=== PATIENT | male | born 1965 | race Caucasian/White ===

== ENCOUNTER 2018-05-10 22:44 | Inpatient (IN) | payer SELFPAY ==
[~2018-05-10] VITALS: Ht 175.3 cm; Wt 89.4 kg
[~2018-05-10 22:44] MED LIST: MECL12.584 PO
[2018-05-10] MEDS ORDERED: SODIUM CHLORIDE 0.9% 1,000 ML IV ONE (23:17)
[2018-05-11 00:15] LABS: BASOPHILS % 1.1 % (0.0-2.0); EOSINOPHILS % 1.3 % (0.0-5.0); HEMATOCRIT. 42.8 % (42.0-52.0); HEMOGLOBIN. 14.8 g/dL (14.0-18.0); LYMPHOCYTES % 32.7 % (20.0-50.0); MEAN CORPUSCULAR HEMOGLOBIN 30.9 pg (28.0-32.0); MEAN CORPUSCULAR VOLUME 89.3 fL (80.0-94.0); MEAN PLATELET VOLUME 8.4 fl (7.4-10.4); MONOCYTES % 7.6 % (2.0-8.0); NEUTROPHILS % 57.3 % (40.0-76.0); PLATELET 257 x1000/uL (130-400)
[2018-05-11 00:20] LABS: CHLORIDE 99 mEq/L (98-107)
[2018-05-11 00:27] LABS: BETA HYDROXYBUTYRATE 0.1 mMol/L (0.0-0.3)
[2018-05-11] MEDS ORDERED: SODIUM CHLORIDE 0.9% 1,000 ML IV SCH (02:06)
[2018-05-11 02:07] LABS: CLARITY URINE CLEAR (CLEAR); COLOR URINE YELLOW (YELLOW); KETONES URINE TRACE (NEGATIVE); LEUKOCYTE ESTERASE URINE NEGATIVE (NEGATIVE); NITRITE URINE NEGATIVE (NEGATIVE); OCCULT BLOOD URINE NEGATIVE (NEGATIVE); PH URINE 6.5 (4.5-8.0); PROTEIN URINE NEGATIVE (NEGATIVE); SPECIFIC GRAVITY URINE 1.028 (1.005-1.030); UROBILINOGEN URINE 0.2 E.U./dL (0.2-1.0)
[2018-05-11] MEDS ORDERED: HYDROCODONE/ACETAMINOPHEN 5/325MG TABLET PO PRN (05:15)
[2018-05-11] MEDS ORDERED: NA PHOS,M-B/NA PHOS,DI-BA ENEMA 118ML PR PRN (05:15)
[2018-05-11] MEDS ORDERED: DOCUSATE SODIUM 100MG CAPSULE PO PRN (05:15)
[2018-05-11] MEDS ORDERED: IPRATROPIUM/ALBUTEROL 0.5-3(2.5)MG/3ML NEB INH PRN (05:15)
[2018-05-11] MEDS ORDERED: CLONIDINE 0.1MG TABLET PO PRN (05:15)
[2018-05-11] MEDS ORDERED: MAGNESIUM/ALUMINUM HYDROXIDE/SIMETHICONE 30ML UDC PO PRN (05:15)
[2018-05-11] MEDS ORDERED: ONDANSETRON HCL 4MG/2ML INJ IV PRN (05:15)
[2018-05-11] MEDS ORDERED: LORAZEPAM 2MG/ML CPJ IV PRN (05:15)
[2018-05-11] MEDS ORDERED: GUAIFENESIN 200MG/10ML SUGAR FREE UDC PO PRN (05:15)
[2018-05-11] MEDS ORDERED: DIPHENHYDRAMINE 50MG/ML VIAL IV PRN (05:15)
[2018-05-11] MEDS ORDERED: ACETAMINOPHEN 325MG TABLET PO PRN (05:15)
[2018-05-11] MEDS ORDERED: MORPHINE SULFATE 4 MG/ML CPJ (NOT FOR IM USE) IV PRN (05:15)
[2018-05-11 06:28] LABS: CREATINE KINASE 56 IU/L (39-308)
[2018-05-11 06:29] LABS: CREATINE KINASE MB FRACTION 1.1 ng/mL (0.5-3.6)
[2018-05-11 10:40] VITALS: BP 153/84
[2018-05-11] MEDS ORDERED: DEXTROSE 50% WATER 50ML SYRINGE IV PRN (14:15)
[2018-05-11] MEDS: ENOXAPARIN 40MG/0.4ML SYR SUBCUT SCH (14:48)
[2018-05-11] MEDS: ASPIRIN 81MG EC TABLET PO SCH (14:48)
[2018-05-11] MEDS: INSULIN LISPRO 100 UNITS/ML SUBCUT SCH ×3 (14:56→21:58)
[2018-05-11 17:02] LABS: CREATINE KINASE 47 IU/L (39-308); CREATINE KINASE MB FRACTION < 1.0 ng/mL (0.5-3.6)
[2018-05-11] MEDS: BLOOD SUGAR DIAGNOSTIC STRIP TEST SCH ×2 (18:01→21:51)
[2018-05-11] MEDS: SODIUM CHLORIDE 0.9% 1,000 ML IV SCH (18:54)
[2018-05-11 20:00] VITALS: BP 121/75
[2018-05-11 23:55] VITALS: BP 114/72
[2018-05-12] VITALS: BP 132/77
[2018-05-12] MEDS: SODIUM CHLORIDE 0.9% 1,000 ML IV SCH (03:09)
[2018-05-12 04:00] VITALS: BP_SYST 127; BP_SYST 133; BP_DIAS 69; BP_DIAS 77
[2018-05-12] MEDS: BLOOD SUGAR DIAGNOSTIC STRIP TEST SCH ×2 (07:20→12:08)
[2018-05-12 08:00] VITALS: BP 122/74
[2018-05-12 08:03] LABS: BASOPHILS % 0.9 % (0.0-2.0); EOSINOPHILS % 1.5 % (0.0-5.0); HEMOGLOBIN. 14.7 g/dL (14.0-18.0); LYMPHOCYTES % 38.5 % (20.0-50.0); MEAN CORPUSCULAR HEMOGLOBIN 31.3 pg (28.0-32.0); MEAN CORPUSCULAR VOLUME 89.1 fL (80.0-94.0); MEAN PLATELET VOLUME 8.7 fl (7.4-10.4); MONOCYTES % 7.4 % (2.0-8.0); NEUTROPHILS % 51.7 % (40.0-76.0); PLATELET 250 x1000/uL (130-400); RED BLOOD CELL COUNT 4.71 mill/uL (4.7-6.1); RED CELL DISTRIBUTION WIDTH 13.4 % (11.6-14.6)
[2018-05-12 08:14] LABS: CHLORIDE 104 mEq/L (98-107)
[2018-05-12] MEDS: ASPIRIN 81MG EC TABLET PO SCH (09:36)
[2018-05-12] MEDS: INSULIN LISPRO 100 UNITS/ML SUBCUT SCH ×2 (09:38→12:25)
[2018-05-12] MEDS: ENOXAPARIN 40MG/0.4ML SYR SUBCUT SCH (11:00)
[2018-05-12 12:00] VITALS: BP 139/94
== END 2018-05-12 14:00 | disposition home or self-care (01) | DRG 82 ==
LOC: ER 23:45 → 6WST 05-11 02:07 → EDBEDREQTM 05-11 02:09 → EDBEDREQ 05-11 02:09 → ENRESERV 05-11 10:10
PROVIDERS: ADMIT Internal Medicine; ATTEND Internal Medicine
DX: H53.40 Unspecified visual field defects (principal); E11.65 Type 2 diabetes mellitus with hyperglycemia; F17.210 Nicotine dependence, cigarettes, uncomplicated; Z79.899 Other long term (current) drug therapy
CPT/HCPCS: 36415; 71045; 82010; 82550; 82553; 82962; 83036; 84439; 84443; 84484; 93005; 96360; 96361; 99285; J1650; J1815; J7030

== ENCOUNTER 2022-08-23 18:32 | Inpatient (IN) | payer MEDICAID ==
[~2022-08-23] VITALS: Ht 175.3 cm; Wt 89.4 kg
[~2022-08-23 18:32] MED LIST changes: +MECL-217 PO; -MECL12.584 PO
[2022-08-23] MEDS ORDERED: DILTIAZEM HCL 5MG/ML 5ML VIAL IV ONE (19:15)
[2022-08-23 20:20] LABS: BASOPHILS % 0.8 % (0.0-2.0); EOSINOPHILS % 1.5 % (0.0-5.0); HEMATOCRIT. 40.2 % (42.0-52.0); HEMOGLOBIN. 13.3 g/dL (14.0-18.0); LYMPHOCYTES % 32.4 % (20.0-50.0); MEAN CORPUSCULAR HEMOGLOBIN 30.6 pg (28.0-32.0); MEAN CORPUSCULAR VOLUME 92.4 fL (80.0-94.0); MEAN PLATELET VOLUME 8.4 fl (7.4-10.4); MONOCYTES % 7.5 % (2.0-8.0); NEUTROPHILS % 57.8 % (40.0-76.0); PLATELET 233 x1000/uL (130-400); RED BLOOD CELL COUNT 4.35 mill/uL (4.7-6.1); RED CELL DISTRIBUTION WIDTH 13.5 % (11.6-14.6)
[2022-08-23 20:33] LABS: CHLORIDE 105 mEq/L (98-107)
[2022-08-23 20:42] LABS: ETHANOL BLOOD < 10 mg/dL
[2022-08-23] MEDS ORDERED: ENOXAPARIN 100MG/ML SYR SUBCUT ONE (21:30)
[2022-08-23] MEDS ORDERED: ASPIRIN 325MG EC TABLET PO ONE (21:30)
[2022-08-23] MEDS ORDERED: METHYLPREDNISOLONE SOD SUCC 125 MG/2 ML VIAL IV ONE (21:45)
[2022-08-23] MEDS ORDERED: ONDANSETRON HCL 4MG/2ML INJ IV PRN (22:30)
[2022-08-23] MEDS ORDERED: CLONIDINE 0.1MG TABLET PO PRN (22:30)
[2022-08-23] MEDS ORDERED: DOCUSATE SODIUM 100MG CAPSULE PO PRN (22:30)
[2022-08-23] MEDS ORDERED: NA PHOS,M-B/NA PHOS,DI-BA ENEMA 118ML PR PRN (22:30)
[2022-08-23] MEDS ORDERED: NITROGLYCERIN 0.4MG TABLET SL SL PRN (22:30)
[2022-08-23] MEDS ORDERED: ZOLPIDEM TARTRATE 5MG TABLET PO PRN (22:30)
[2022-08-23] MEDS ORDERED: MAGNESIUM/ALUMINUM HYDROXIDE/SIMETHICONE 30ML UDC PO PRN (22:30)
[2022-08-23] MEDS ORDERED: KETOROLAC 15MG/ML VIAL IV PRN (22:30)
[2022-08-23] MEDS ORDERED: ACETAMINOPHEN 325MG TABLET PO PRN (22:30)
[2022-08-23] MEDS ORDERED: IPRATROPIUM/ALBUTEROL 0.5-3(2.5)MG/3ML NEB NEB PRN (22:30)
[2022-08-23] MEDS ORDERED: IPRATROPIUM BROMIDE (0.02%) 0.5MG/2.5ML NEB HHN PRN (22:45)
[2022-08-23] MEDS ORDERED: ALBUTEROL (0.083%) 2.5MG/3ML NEB HHN PRN (22:45)
[2022-08-23] MEDS ORDERED: IOHEXOL-350 100 ML BOTTLE ONE (22:45)
[2022-08-23 23:10] LABS: PROTHROMBIN TIME 10.8 sec (9.6-11.0)
[2022-08-23 23:19] LABS: T4 FREE 1.1 ng/dL (0.76-1.46)
[2022-08-23 23:41] LABS: FOLIC ACID (FOLATE) SERUM 18.1 ng/mL (>5.38)
[2022-08-24] MEDS ORDERED: DEXTROSE 50% WATER 50ML SYRINGE IV PRN (02:45)
[2022-08-24 06:21] LABS: CHLORIDE 107 mEq/L (98-107)
[2022-08-24 06:27] LABS: PHOSPHORUS 3.1 mg/dL (2.5-4.9)
[2022-08-24 06:30] LABS: BASOPHILS % 0.3 % (0.0-2.0); HEMOGLOBIN. 12.7 g/dL (14.0-18.0); LYMPHOCYTES % 13.3 % (20.0-50.0); MEAN CORPUSCULAR HEMOGLOBIN 31.3 pg (28.0-32.0); MEAN CORPUSCULAR VOLUME 91.1 fL (80.0-94.0); MEAN PLATELET VOLUME 8.7 fl (7.4-10.4); MONOCYTES % 1.2 % (2.0-8.0); NEUTROPHILS % 85.2 % (40.0-76.0); PLATELET 217 x1000/uL (130-400); RED BLOOD CELL COUNT 4.07 mill/uL (4.7-6.1); RED CELL DISTRIBUTION WIDTH 13.6 % (11.6-14.6)
[2022-08-24] MEDS: INSULIN LISPRO 100 UNITS/ML SUBCUT SCH ×4 (09:19→22:30)
[2022-08-24] MEDS: BLOOD SUGAR DIAGNOSTIC STRIP TEST SCH ×4 (09:29→21:00)
[2022-08-24] MEDS: ASPIRIN 325MG EC TABLET PO SCH (09:54)
[2022-08-24] MEDS: METOPROLOL TARTRATE 25MG TABLET PO SCH ×2 (09:54→21:07)
[2022-08-24] MEDS: FAMOTIDINE 20MG TABLET PO SCH ×2 (09:54→21:07)
[2022-08-24] MEDS: ENOXAPARIN 100MG/ML SYR SUBCUT SCH ×2 (09:55→21:07)
[2022-08-24 10:24] VITALS: BP 127/85
[2022-08-24] MEDS: CLOPIDOGREL 75MG TABLET PO SCH (11:58)
[2022-08-24 12:00] VITALS: BP 107/72
[2022-08-24] MEDS ORDERED: MAGNESIUM 2 G PREMIX 50 ML IV NR (12:00)
[2022-08-24 14:00] VITALS: BP 105/73
[2022-08-24 15:50] LABS: CREATINE KINASE MB FRACTION 31.6 ng/mL (0.5-3.6)
[2022-08-24 16:00] VITALS: BP 107/84
[2022-08-24 20:00] VITALS: BP 141/86
[2022-08-24 22:17] VITALS: BP 176/109
[2022-08-24] MEDS: INSULIN GLARGINE 100 UNITS/ML SUBCUT SCH (22:31)
[2022-08-25] VITALS (12 sets, daily range): BP systolic 96–136; BP diastolic 59–97
[2022-08-25] MEDS: INSULIN LISPRO 100 UNITS/ML SUBCUT SCH ×4 (07:54→20:46)
[2022-08-25] MEDS: BLOOD SUGAR DIAGNOSTIC STRIP TEST SCH ×4 (07:54→20:39)
[2022-08-25] MEDS: METOPROLOL TARTRATE 25MG TABLET PO SCH ×2 (09:40→20:47)
[2022-08-25] MEDS: FAMOTIDINE 20MG TABLET PO SCH ×2 (09:40→20:46)
[2022-08-25] MEDS: CLOPIDOGREL 75MG TABLET PO SCH (09:40)
[2022-08-25] MEDS: ASPIRIN 325MG EC TABLET PO SCH (09:40)
[2022-08-25] MEDS: ENOXAPARIN 100MG/ML SYR SUBCUT SCH ×2 (09:41→20:46)
[2022-08-25] MEDS: INSULIN GLARGINE 100 UNITS/ML SUBCUT SCH (20:45)
[2022-08-26] VITALS (13 sets, daily range): BP systolic 93–136; BP diastolic 53–87
[2022-08-26] MEDS: BLOOD SUGAR DIAGNOSTIC STRIP TEST SCH ×4 (07:30→20:50)
[2022-08-26] MEDS: CLOPIDOGREL 75MG TABLET PO SCH (10:26)
[2022-08-26] MEDS: FAMOTIDINE 20MG TABLET PO SCH ×2 (10:26→20:50)
[2022-08-26] MEDS: ASPIRIN 325MG EC TABLET PO SCH (10:26)
[2022-08-26] MEDS: ENOXAPARIN 100MG/ML SYR SUBCUT SCH ×2 (10:27→20:57)
[2022-08-26] MEDS: METOPROLOL TARTRATE 25MG TABLET PO SCH ×2 (10:27→20:59)
[2022-08-26] MEDS: INSULIN LISPRO 100 UNITS/ML SUBCUT SCH ×3 (13:00→20:56)
[2022-08-26] MEDS ORDERED: ACETAMINOPHEN 325MG TABLET PO PRN (19:30)
[2022-08-26] MEDS ORDERED: ALPRAZOLAM 0.25 MG TABLET PO PRN (19:30)
[2022-08-26] MEDS: GUAIFENESIN 200MG/10ML SUGAR FREE UDC PO PRN (20:50)
[2022-08-26] MEDS: INSULIN GLARGINE 100 UNITS/ML SUBCUT SCH (20:57)
[2022-08-27] VITALS (12 sets, daily range): BP systolic 94–158; BP diastolic 45–72
[2022-08-27] MEDS: INSULIN LISPRO 100 UNITS/ML SUBCUT SCH ×4 (08:00→21:23)
[2022-08-27] MEDS: FAMOTIDINE 20MG TABLET PO SCH ×2 (08:32→20:26)
[2022-08-27] MEDS: LOSARTAN POTASSIUM 50 MG TABLET PO SCH (08:32)
[2022-08-27] MEDS: ENOXAPARIN 100MG/ML SYR SUBCUT SCH ×2 (08:33→20:27)
[2022-08-27] MEDS: METOPROLOL TARTRATE 50MG TABLET PO SCH ×2 (08:33→20:35)
[2022-08-27] MEDS: BLOOD SUGAR DIAGNOSTIC STRIP TEST SCH ×4 (08:42→20:27)
[2022-08-27] MEDS: ASPIRIN 325MG EC TABLET PO SCH (11:58)
[2022-08-27] MEDS: FUROSEMIDE 40MG/4ML VIAL IVP SCH (12:33)
[2022-08-27] MEDS: ATORVASTATIN CALCIUM 40MG TABLET PO SCH (20:26)
[2022-08-27] MEDS: INSULIN GLARGINE 100 UNITS/ML SUBCUT SCH (21:23)
[2022-08-28] VITALS (10 sets, daily range): BP systolic 90–121; BP diastolic 43–74
[2022-08-28] MEDS: INSULIN LISPRO 100 UNITS/ML SUBCUT SCH ×4 (08:00→22:35)
[2022-08-28] MEDS: ENOXAPARIN 100MG/ML SYR SUBCUT SCH (08:20)
[2022-08-28] MEDS: METOPROLOL TARTRATE 50MG TABLET PO SCH ×2 (08:21→22:30)
[2022-08-28] MEDS: FUROSEMIDE 40MG/4ML VIAL IVP SCH (08:21)
[2022-08-28] MEDS: FAMOTIDINE 20MG TABLET PO SCH ×2 (08:21→22:30)
[2022-08-28] MEDS: BLOOD SUGAR DIAGNOSTIC STRIP TEST SCH ×4 (08:22→21:00)
[2022-08-28] MEDS: ASPIRIN 81MG EC TABLET PO SCH (08:26)
[2022-08-28 10:43] LABS: CLARITY URINE CLEAR (CLEAR); COLOR URINE YELLOW (YELLOW); KETONES URINE NEGATIVE (NEGATIVE); LEUKOCYTE ESTERASE URINE NEGATIVE (NEGATIVE); NITRITE URINE NEGATIVE (NEGATIVE); OCCULT BLOOD URINE NEGATIVE (NEGATIVE); PROTEIN URINE NEGATIVE (NEGATIVE); SPECIFIC GRAVITY URINE 1.013 (1.005-1.030)
[2022-08-28] MEDS: LOSARTAN POTASSIUM 50 MG TABLET PO SCH (13:04)
[2022-08-28] MEDS: ATORVASTATIN CALCIUM 40MG TABLET PO SCH (22:29)
[2022-08-28] MEDS: INSULIN GLARGINE 100 UNITS/ML SUBCUT SCH (22:35)
[2022-08-29] VITALS (12 sets, daily range): BP systolic 85–162; BP diastolic 36–68
[2022-08-29] MEDS ORDERED: DOPAMINE 400 MG PREMIX 250 ML IV PRN (05:45)
[2022-08-29] MEDS: BLOOD SUGAR DIAGNOSTIC STRIP TEST SCH ×4 (07:30→21:00)
[2022-08-29] MEDS: FUROSEMIDE 40MG/4ML VIAL IVP SCH (08:57)
[2022-08-29] MEDS: ASPIRIN 81MG EC TABLET PO SCH (08:57)
[2022-08-29] MEDS: FAMOTIDINE 20MG TABLET PO SCH ×2 (08:57→21:16)
[2022-08-29] MEDS: LOSARTAN POTASSIUM 50 MG TABLET PO SCH (09:00)
[2022-08-29] MEDS: METOPROLOL TARTRATE 50MG TABLET PO SCH ×2 (09:00→21:30)
[2022-08-29] MEDS: INSULIN LISPRO 100 UNITS/ML SUBCUT SCH ×4 (09:07→21:24)
[2022-08-29] MEDS ORDERED: CHLORHEXIDINE GLUCONATE 4% EXTERNAL USE TOP SCH (21:00)
[2022-08-29] MEDS ORDERED: DOCUSATE SODIUM 100MG CAPSULE PO SCH (21:00)
[2022-08-29] MEDS ORDERED: BISACODYL 10MG SUPP PR PRN (21:00)
[2022-08-29] MEDS ORDERED: ASCORBIC ACID 500 MG TABLET PO SCH (21:00)
[2022-08-29] MEDS: ATORVASTATIN CALCIUM 40MG TABLET PO SCH (21:17)
[2022-08-29] MEDS: ALLOPURINOL 300 MG TABLET PO SCH (21:17)
[2022-08-29] MEDS: INSULIN GLARGINE 100 UNITS/ML SUBCUT SCH (21:52)
[2022-08-30] VITALS (54 sets, daily range): BP systolic 0–174; BP diastolic 0–126
[2022-08-30] MEDS ORDERED: NOREPINEPHRINE 8 MG in DEXT 5% WATER 242 ML IV PRN (04:00)
[2022-08-30] MEDS ORDERED: PAPAVERINE HCL 180MG in SODIUM CHLORIDE 0.9% 24ML IV NR (04:00)
[2022-08-30] MEDS ORDERED: EPINEPHRINE 5 MG in DEXT 5% WATER 245 ML IV PRN (04:00)
[2022-08-30] MEDS ORDERED: CEFAZOLIN 2,000 MG in DEXT 5% WATER 100 ML IV NR (04:00)
[2022-08-30] MEDS ORDERED: INSULIN REGULAR 100U/100ML PMX 100 ML IV NR (04:00)
[2022-08-30] MEDS ORDERED: DOBUTAMINE 250MG PREMIX 250 ML IV PRN (04:00)
[2022-08-30] MEDS ORDERED: NICARDIPINE 40MG/200ML PREMIX 200 ML IV PRN (04:00)
[2022-08-30] MEDS ORDERED: DEL NIDO ELECTROLYTE-S(PH 7.4) 1,000 ML IV NR ×2 (04:00)
[2022-08-30] MEDS ORDERED: THROMBIN (BOVINE) 5000 UNITS/VIAL TOP ONE (05:26)
[2022-08-30] MEDS ORDERED: POLYMYXIN B SULFATE 500000 UNITS/VIAL ONE (05:26)
[2022-08-30] MEDS ORDERED: DOPAMINE 400MG/250ML PREMIX 250 ML IV ONE (05:26)
[2022-08-30] MEDS: ALLOPURINOL 300 MG TABLET PO SCH (05:28)
[2022-08-30] MEDS ORDERED: HEPARIN 1000 UNITS/ML 10ML ONE ×2 (05:28→08:59)
[2022-08-30] MEDS ORDERED: NICARDIPINE 40MG/200ML PREMIX 200 ML IV ONE (05:30)
[2022-08-30] MEDS ORDERED: SEVOFLURANE 250 ML LIQUID INH ONE (05:30)
[2022-08-30] MEDS ORDERED: CHLORHEXIDINE GLUCONATE 4% EXTERNAL USE TOP SCH (06:00)
[2022-08-30 06:02] LABS: PARTIAL THROMBOPLASTIN TIME 29.3 sec (23.4-31.0); PROTHROMBIN TIME 10.9 sec (9.6-11.0)
[2022-08-30 06:06] LABS: BASOPHILS % 0.9 % (0.0-2.0); EOSINOPHILS % 2.7 % (0.0-5.0); HEMATOCRIT. 38.6 % (42.0-52.0); HEMOGLOBIN. 13.3 g/dL (14.0-18.0); LYMPHOCYTES % 31.1 % (20.0-50.0); MEAN CORPUSCULAR HEMOGLOBIN 31.6 pg (28.0-32.0); MEAN CORPUSCULAR VOLUME 91.8 fL (80.0-94.0); MEAN PLATELET VOLUME 8.8 fl (7.4-10.4); NEUTROPHILS % 54.3 % (40.0-76.0); PLATELET 250 x1000/uL (130-400); RED BLOOD CELL COUNT 4.21 mill/uL (4.7-6.1); RED CELL DISTRIBUTION WIDTH 13.5 % (11.6-14.6)
[2022-08-30 06:31] LABS: CHLORIDE 104 mEq/L (98-107)
[2022-08-30] MEDS ORDERED: FENTANYL CITRATE/PF 50MCG/ML 2ML VIAL ONE (07:01)
[2022-08-30] MEDS ORDERED: ROCURONIUM BROMIDE 10MG/ML VIAL 5ML IV ONE ×2 (07:03→09:31)
[2022-08-30] MEDS: BLOOD SUGAR DIAGNOSTIC STRIP TEST SCH ×12 (07:30→23:00)
[2022-08-30] MEDS: INSULIN LISPRO 100 UNITS/ML SUBCUT SCH (08:00)
[2022-08-30] MEDS ORDERED: DEXAMETHASONE 4MG/ML 1ML VIAL ONE (08:19)
[2022-08-30] MEDS ORDERED: FUROSEMIDE 20MG/2ML VIAL ONE (08:19)
[2022-08-30] MEDS ORDERED: PROTAMINE SULFATE 10MG/ML VIAL 25ML IV ONE (08:22)
[2022-08-30] MEDS ORDERED: DEXMEDETOMIDINE 400 MCG/100 ML 100 ML IV ONE (08:22)
[2022-08-30] MEDS ORDERED: CALCIUM CHLORIDE 1GM/10ML SYR IV ONE (08:59)
[2022-08-30] MEDS: METOPROLOL TARTRATE 50MG TABLET PO SCH ×2 (09:00→20:54)
[2022-08-30] MEDS: FUROSEMIDE 40MG/4ML VIAL IVP SCH (09:00)
[2022-08-30] MEDS: LOSARTAN POTASSIUM 50 MG TABLET PO SCH (09:00)
[2022-08-30] MEDS: FAMOTIDINE 20MG TABLET PO SCH ×2 (09:00→21:20)
[2022-08-30] MEDS: ASPIRIN 81MG EC TABLET PO SCH (09:00)
[2022-08-30] MEDS ORDERED: DEXTROSE 50% WATER 50ML SYRINGE IV ONE (09:11)
[2022-08-30] MEDS ORDERED: DEXTROSE 50% WATER 50ML SYRINGE IV PRN ×2 (09:45)
[2022-08-30] MEDS ORDERED: BLOOD SUGAR DIAGNOSTIC STRIP TEST SCH (09:45)
[2022-08-30] MEDS ORDERED: KCL 10MEQ/50ML PREMIX 150 ML IV PRN (09:45)
[2022-08-30] MEDS ORDERED: KCL 10MEQ/50ML PREMIX 200 ML IV PRN (09:45)
[2022-08-30] MEDS ORDERED: INSULIN REGULAR 100U/100ML PMX 100 ML IV SCH (09:45)
[2022-08-30] MEDS ORDERED: KCL 10MEQ/50ML PREMIX 100 ML IV PRN (09:45)
[2022-08-30] MEDS ORDERED: SODIUM BICARBONATE 8.4% 1 MEQ/ML 50ML SYR IV ONE (10:36)
[2022-08-30] MEDS ORDERED: ALBUMIN HUMAN 25GM/100ML (25%) IV PRN (10:45)
[2022-08-30] MEDS ORDERED: SODIUM CHLORIDE 0.9% 500 ML IV PRN (10:45)
[2022-08-30] MEDS ORDERED: ONDANSETRON HCL 4MG/2ML INJ IV PRN (10:45)
[2022-08-30] MEDS ORDERED: ALBUMIN HUMAN 12.5G/250ML (5%) IV PRN (10:45)
[2022-08-30] MEDS ORDERED: MAGNESIUM SULFATE 3 GM in DEXT 5% WATER 100 ML IV PRN (10:45)
[2022-08-30] MEDS ORDERED: ACETAMINOPHEN 325MG TABLET PO PRN (10:45)
[2022-08-30] MEDS ORDERED: MAGNESIUM 1 G PREMIX 100 ML IV PRN (10:45)
[2022-08-30] MEDS ORDERED: EPINEPHRINE 5 MG in DEXT 5% WATER 245 ML IV SCH (10:45)
[2022-08-30 11:08] LABS: BG BASE EXCESS -0.4 mmol/L (-2.0-2.0); BG CARBOXYHEMOGLOBIN 0.7 % (0.5-1.5); BG DEOXYHEMOGLOBIN 7.4 % (0.0-5.0); BG FRACTION INSPIRED OXYGEN 100; BG HCO3 ACT 25.8 mmol/L (22.0-26.0); BG METHEMOGLOBIN 0.2 % (0.0-1.5); BG OXYGEN SATURATION 92.5 % (92.0-98.5); BG OXYHEMOGLOBIN 91.7 % (94.0-97.0); BG PCO2 48.5 mmHg (35.0-45.0); BG PH 7.343 (7.350-7.450); BG PO2 70.9 mmHg (75.0-100.0); BG SAMPLE SITE ALINE; BG TOTAL HEMOGLOBIN 12.4 g/dL (12.0-18.0); BG VENT MODE MASK - NRB
[2022-08-30] MEDS: KETOROLAC 30MG/ML VIAL IV PRN ×2 (11:44→17:38)
[2022-08-30] MEDS: DOPAMINE 400MG/250ML PREMIX 250 ML IV SCH ×2 (11:48→21:23)
[2022-08-30 11:49] LABS: BASOPHILS % 0.3 % (0.0-2.0); EOSINOPHILS % 0.7 % (0.0-5.0); HEMATOCRIT. 35.8 % (42.0-52.0); LYMPHOCYTES % 12.6 % (20.0-50.0); MEAN CORPUSCULAR HEMOGLOBIN 30.8 pg (28.0-32.0); MEAN CORPUSCULAR VOLUME 92.1 fL (80.0-94.0); MEAN PLATELET VOLUME 8.3 fl (7.4-10.4); MONOCYTES % 5.4 % (2.0-8.0); PLATELET 230 x1000/uL (130-400); RED BLOOD CELL COUNT 3.89 mill/uL (4.7-6.1); RED CELL DISTRIBUTION WIDTH 13.5 % (11.6-14.6)
[2022-08-30] MEDS: BACITRACIN 15GM TUBE TOP SCH ×2 (12:00→17:00)
[2022-08-30] MEDS ORDERED: CALCIUM CHLORIDE 3,000 MG in DEXT 5% WATER 250 ML IV PRN (12:00)
[2022-08-30] MEDS: DOCUSATE SODIUM 100MG CAPSULE PO SCH ×2 (12:01→17:10)
[2022-08-30] MEDS: DEXT 5%/0.45% NACL 1000ML 1,000 ML IV SCH (12:03)
[2022-08-30] MEDS: CEFAZOLIN 1000MG PREMIX 50 ML IV SCH ×2 (14:26→20:26)
[2022-08-30] MEDS: OXYCODONE HCL/ACETAMINOPHEN 5/325MG TABLET PO PRN ×2 (16:12→20:52)
[2022-08-30] MEDS: ACETAMINOPHEN 325MG TABLET PO PRN (17:10)
[2022-08-30 17:28] LABS: HEMATOCRIT. 29.8 % (42.0-52.0); HEMOGLOBIN. 10.1 g/dL (14.0-18.0); MEAN CORPUSCULAR HEMOGLOBIN 31.2 pg (28.0-32.0); MEAN CORPUSCULAR VOLUME 91.6 fL (80.0-94.0); MEAN PLATELET VOLUME 8.2 fl (7.4-10.4); PLATELET 209 x1000/uL (130-400); RED BLOOD CELL COUNT 3.25 mill/uL (4.7-6.1); RED CELL DISTRIBUTION WIDTH 13.3 % (11.6-14.6)
[2022-08-30 17:59] LABS: CHLORIDE 114 mEq/L (98-107)
[2022-08-30 19:30] LABS: PLATELET ESTIMATE NORMAL
[2022-08-30] MEDS: ATORVASTATIN CALCIUM 40MG TABLET PO SCH (20:53)
[2022-08-30] MEDS: INSULIN GLARGINE 100 UNITS/ML SUBCUT SCH (23:53)
[2022-08-31] VITALS (82 sets, daily range): BP systolic 82–140; BP diastolic 32–94
[2022-08-31] MEDS: BLOOD SUGAR DIAGNOSTIC STRIP TEST SCH ×10 (00:09→21:00)
[2022-08-31 00:52] LABS: HEMATOCRIT. 31.4 % (42.0-52.0); HEMOGLOBIN. 10.6 g/dL (14.0-18.0); MEAN CORPUSCULAR HEMOGLOBIN 31.1 pg (28.0-32.0); MEAN CORPUSCULAR VOLUME 91.6 fL (80.0-94.0); MEAN PLATELET VOLUME 8.5 fl (7.4-10.4); PLATELET 244 x1000/uL (130-400); RED BLOOD CELL COUNT 3.43 mill/uL (4.7-6.1); RED CELL DISTRIBUTION WIDTH 13.5 % (11.6-14.6)
[2022-08-31 00:58] LABS: CHLORIDE 106 mEq/L (98-107)
[2022-08-31 04:31] LABS: PLATELET ESTIMATE NORMAL
[2022-08-31] MEDS: CEFAZOLIN 1000MG PREMIX 50 ML IV SCH ×2 (04:34→18:02)
[2022-08-31] MEDS: OXYCODONE HCL/ACETAMINOPHEN 5/325MG TABLET PO PRN (04:35)
[2022-08-31 06:29] LABS: BASOPHILS % 0.2 % (0.0-2.0); HEMATOCRIT. 30.9 % (42.0-52.0); HEMOGLOBIN. 10.8 g/dL (14.0-18.0); LYMPHOCYTES % 12.7 % (20.0-50.0); MEAN CORPUSCULAR VOLUME 91.1 fL (80.0-94.0); MONOCYTES % 11.8 % (2.0-8.0); NEUTROPHILS % 75.3 % (40.0-76.0); PLATELET 235 x1000/uL (130-400); RED BLOOD CELL COUNT 3.39 mill/uL (4.7-6.1); RED CELL DISTRIBUTION WIDTH 13.5 % (11.6-14.6)
[2022-08-31] MEDS: LOSARTAN POTASSIUM 50 MG TABLET PO SCH (08:45)
[2022-08-31] MEDS: FAMOTIDINE 20MG TABLET PO SCH ×2 (08:45→23:09)
[2022-08-31] MEDS: DOCUSATE SODIUM 100MG CAPSULE PO SCH ×2 (08:45→18:02)
[2022-08-31] MEDS: ASPIRIN 81MG EC TABLET PO SCH (08:45)
[2022-08-31] MEDS: FUROSEMIDE 40MG/4ML VIAL IVP SCH (08:46)
[2022-08-31] MEDS: METOPROLOL TARTRATE 50MG TABLET PO SCH ×2 (08:48→21:00)
[2022-08-31] MEDS: BACITRACIN 15GM TUBE TOP SCH ×2 (08:50→18:23)
[2022-08-31 09:42] LABS: CHLORIDE 106 mEq/L (98-107)
[2022-08-31] MEDS ORDERED: ALBUTEROL (0.083%) 2.5MG/3ML NEB HHN PRN (10:15)
[2022-08-31] MEDS ORDERED: IPRATROPIUM/ALBUTEROL 0.5-3(2.5)MG/3ML NEB HHN PRN (10:15)
[2022-08-31] MEDS ORDERED: IPRATROPIUM BROMIDE (0.02%) 0.5MG/2.5ML NEB HHN PRN (10:15)
[2022-08-31] MEDS: MAGNESIUM 2 G PREMIX 50 ML IV PRN (10:52)
[2022-08-31] MEDS: DEXT 5%/0.45% NACL 1000ML 1,000 ML IV SCH (12:19)
[2022-08-31] MEDS: IPRATROPIUM BROMIDE (0.02%) 0.5MG/2.5ML NEB HHN SCH ×4 (12:32→22:15)
[2022-08-31] MEDS: ACETAMINOPHEN 325MG TABLET PO PRN (12:33)
[2022-08-31] MEDS ORDERED: MAGNESIUM 2 G PREMIX 50 ML IV NR (14:00)
[2022-08-31] MEDS ORDERED: FUROSEMIDE 40MG/4ML VIAL IVP NR (14:30)
[2022-08-31] MEDS: INSULIN LISPRO 100 UNITS/ML SUBCUT SCH ×3 (18:23→23:45)
[2022-08-31] MEDS: INSULIN GLARGINE 100 UNITS/ML SUBCUT SCH (22:00)
[2022-08-31] MEDS: ATORVASTATIN CALCIUM 40MG TABLET PO SCH (23:08)
[2022-09-01] VITALS (28 sets, daily range): BP systolic 84–137; BP diastolic 25–81
[2022-09-01] MEDS: IPRATROPIUM BROMIDE (0.02%) 0.5MG/2.5ML NEB HHN SCH ×5 (00:24→22:15)
[2022-09-01] MEDS: OXYCODONE HCL/ACETAMINOPHEN 5/325MG TABLET PO PRN ×3 (02:13→17:56)
[2022-09-01 06:29] LABS: BASOPHILS % 0.6 % (0.0-2.0); EOSINOPHILS % 0.8 % (0.0-5.0); HEMATOCRIT. 31.1 % (42.0-52.0); LYMPHOCYTES % 27.8 % (20.0-50.0); MEAN CORPUSCULAR HEMOGLOBIN 32.5 pg (28.0-32.0); MEAN CORPUSCULAR VOLUME 92.2 fL (80.0-94.0); MEAN PLATELET VOLUME 8.9 fl (7.4-10.4); MONOCYTES % 11.3 % (2.0-8.0); NEUTROPHILS % 59.5 % (40.0-76.0); PLATELET 227 x1000/uL (130-400); RED BLOOD CELL COUNT 3.37 mill/uL (4.7-6.1); RED CELL DISTRIBUTION WIDTH 13.5 % (11.6-14.6)
[2022-09-01] MEDS: GUAIFENESIN 200MG/10ML SUGAR FREE UDC PO PRN (06:45)
[2022-09-01 07:09] LABS: CHLORIDE 102 mEq/L (98-107)
[2022-09-01] MEDS: INSULIN LISPRO 100 UNITS/ML SUBCUT SCH ×4 (07:59→21:00)
[2022-09-01] MEDS: BLOOD SUGAR DIAGNOSTIC STRIP TEST SCH ×4 (07:59→21:04)
[2022-09-01] MEDS: LOSARTAN POTASSIUM 50 MG TABLET PO SCH (08:16)
[2022-09-01] MEDS: FAMOTIDINE 20MG TABLET PO SCH ×2 (08:16→21:12)
[2022-09-01] MEDS: DOCUSATE SODIUM 100MG CAPSULE PO SCH ×2 (08:16→17:29)
[2022-09-01] MEDS: METOPROLOL TARTRATE 50MG TABLET PO SCH ×2 (08:16→21:13)
[2022-09-01] MEDS: ASPIRIN 81MG EC TABLET PO SCH (08:16)
[2022-09-01] MEDS: MAGNESIUM 2 G PREMIX 50 ML IV PRN (08:17)
[2022-09-01] MEDS: FUROSEMIDE 40MG/4ML VIAL IVP SCH (08:18)
[2022-09-01] MEDS: BACITRACIN 15GM TUBE TOP SCH ×2 (08:18→17:33)
[2022-09-01] MEDS ORDERED: FUROSEMIDE 40MG/4ML VIAL IVP SCH (09:00)
[2022-09-01] MEDS ORDERED: MAGNESIUM 2 G PREMIX 50 ML IV SCH (09:00)
[2022-09-01] MEDS ORDERED: MIDODRINE HCL 5MG TABLET PO SCH (17:00)
[2022-09-01] MEDS ORDERED: NALOXONE HCL 0.4MG/ML VIAL IV PRN (18:15)
[2022-09-01] MEDS: ATORVASTATIN CALCIUM 40MG TABLET PO SCH (21:12)
[2022-09-01] MEDS: INSULIN GLARGINE 100 UNITS/ML SUBCUT SCH (21:19)
[2022-09-02] VITALS (12 sets, daily range): BP systolic 94–132; BP diastolic 34–81
[2022-09-02] MEDS: IPRATROPIUM BROMIDE (0.02%) 0.5MG/2.5ML NEB HHN SCH ×6 (01:02→20:00)
[2022-09-02 06:46] LABS: BASOPHILS % 0.7 % (0.0-2.0); EOSINOPHILS % 2.7 % (0.0-5.0); HEMATOCRIT. 32.7 % (42.0-52.0); LYMPHOCYTES % 26.8 % (20.0-50.0); MEAN CORPUSCULAR HEMOGLOBIN 31.1 pg (28.0-32.0); MEAN CORPUSCULAR VOLUME 92.3 fL (80.0-94.0); MEAN PLATELET VOLUME 8.7 fl (7.4-10.4); MONOCYTES % 11.4 % (2.0-8.0); NEUTROPHILS % 58.4 % (40.0-76.0); PLATELET 241 x1000/uL (130-400); RED BLOOD CELL COUNT 3.55 mill/uL (4.7-6.1); RED CELL DISTRIBUTION WIDTH 13.8 % (11.6-14.6)
[2022-09-02 06:54] LABS: CHLORIDE 103 mEq/L (98-107)
[2022-09-02] MEDS: INSULIN LISPRO 100 UNITS/ML SUBCUT SCH ×4 (07:03→20:50)
[2022-09-02] MEDS: BLOOD SUGAR DIAGNOSTIC STRIP TEST SCH ×4 (07:03→20:52)
[2022-09-02] MEDS ORDERED: MAGNESIUM 2 G PREMIX 50 ML IV NR (08:15)
[2022-09-02] MEDS ORDERED: FUROSEMIDE 40MG/4ML VIAL IVP NR (08:15)
[2022-09-02] MEDS ORDERED: MINERAL OIL 30ML BOTTLE PO NR (08:15)
[2022-09-02] MEDS: FAMOTIDINE 20MG TABLET PO SCH ×2 (08:33→20:48)
[2022-09-02] MEDS: ASPIRIN 81MG EC TABLET PO SCH (08:33)
[2022-09-02] MEDS: LOSARTAN POTASSIUM 50 MG TABLET PO SCH (08:34)
[2022-09-02] MEDS: METOPROLOL TARTRATE 50MG TABLET PO SCH ×2 (08:34→20:51)
[2022-09-02] MEDS: FUROSEMIDE 40MG/4ML VIAL IVP SCH (08:35)
[2022-09-02] MEDS: DOCUSATE SODIUM 100MG CAPSULE PO SCH ×3 (08:36→22:25)
[2022-09-02] MEDS: BACITRACIN 15GM TUBE TOP SCH ×2 (09:00→17:00)
[2022-09-02] MEDS: OXYCODONE HCL/ACETAMINOPHEN 5/325MG TABLET PO PRN ×2 (12:05→20:38)
[2022-09-02] MEDS: ATORVASTATIN CALCIUM 40MG TABLET PO SCH (20:48)
[2022-09-02] MEDS: INSULIN GLARGINE 100 UNITS/ML SUBCUT SCH (22:26)
[2022-09-03] VITALS (8 sets, daily range): BP systolic 97–127; BP diastolic 63–97
[2022-09-03] MEDS: OXYCODONE HCL/ACETAMINOPHEN 5/325MG TABLET PO PRN ×2 (03:21→16:19)
[2022-09-03] MEDS: IPRATROPIUM BROMIDE (0.02%) 0.5MG/2.5ML NEB HHN SCH ×3 (04:00→21:14)
[2022-09-03 06:26] LABS: CHLORIDE 104 mEq/L (98-107)
[2022-09-03 06:27] LABS: BASOPHILS % 0.8 % (0.0-2.0); EOSINOPHILS % 2.7 % (0.0-5.0); HEMATOCRIT. 32.2 % (42.0-52.0); HEMOGLOBIN. 11.1 g/dL (14.0-18.0); LYMPHOCYTES % 28.2 % (20.0-50.0); MEAN CORPUSCULAR HEMOGLOBIN 31.4 pg (28.0-32.0); MEAN CORPUSCULAR VOLUME 91.4 fL (80.0-94.0); MEAN PLATELET VOLUME 8.4 fl (7.4-10.4); MONOCYTES % 10.2 % (2.0-8.0); NEUTROPHILS % 58.1 % (40.0-76.0); PLATELET 251 x1000/uL (130-400); RED BLOOD CELL COUNT 3.52 mill/uL (4.7-6.1); RED CELL DISTRIBUTION WIDTH 13.4 % (11.6-14.6)
[2022-09-03] MEDS: BLOOD SUGAR DIAGNOSTIC STRIP TEST SCH ×4 (06:47→21:08)
[2022-09-03] MEDS: INSULIN LISPRO 100 UNITS/ML SUBCUT SCH ×4 (06:47→21:49)
[2022-09-03] MEDS ORDERED: FUROSEMIDE 40MG/4ML VIAL IVP NR (08:00)
[2022-09-03] MEDS: FAMOTIDINE 20MG TABLET PO SCH ×2 (09:09→21:51)
[2022-09-03] MEDS: METOPROLOL TARTRATE 50MG TABLET PO SCH ×2 (09:10→21:51)
[2022-09-03] MEDS: LOSARTAN POTASSIUM 50 MG TABLET PO SCH (09:10)
[2022-09-03] MEDS: ASPIRIN 81MG EC TABLET PO SCH (09:10)
[2022-09-03] MEDS: DOCUSATE SODIUM 100MG CAPSULE PO SCH (09:10)
[2022-09-03] MEDS: BACITRACIN 15GM TUBE TOP SCH ×2 (09:11→18:03)
[2022-09-03] MEDS ORDERED: MAGNESIUM 2 G PREMIX 50 ML IV NR (09:30)
[2022-09-03] MEDS ORDERED: LANTUSUD SUBCUT (10:14)
[2022-09-03] MEDS ORDERED: FURO-151 MT (10:14)
[2022-09-03] MEDS ORDERED: LIP40 PO (10:14)
[2022-09-03] MEDS ORDERED: SPIR25TA MT (10:14)
[2022-09-03] MEDS ORDERED: ASPI-1406 PO (10:14)
[2022-09-03] MEDS ORDERED: METO-539 PO (10:14)
[2022-09-03] MEDS ORDERED: INSLIS SUBCUT (10:14)
[2022-09-03] MEDS ORDERED: LOSA50TA3 PO (10:14)
[2022-09-03] MEDS ORDERED: FAMO20TA8 PO (10:14)
[2022-09-03] MEDS ORDERED: MAGN400T26 MT (11:02)
[2022-09-03] MEDS: FUROSEMIDE 40MG/4ML VIAL IVP SCH (12:23)
[2022-09-03] MEDS: LACTULOSE 20G/30ML UDC PO PRN ×2 (13:40→16:19)
[2022-09-03] MEDS ORDERED: BISACODYL 10MG SUPP PR NR (16:45)
[2022-09-03] MEDS: INSULIN GLARGINE 100 UNITS/ML SUBCUT SCH (21:45)
[2022-09-03] MEDS: ATORVASTATIN CALCIUM 40MG TABLET PO SCH (21:51)
[2022-09-04] MEDS: OXYCODONE HCL/ACETAMINOPHEN 5/325MG TABLET PO PRN (03:30)
[2022-09-04] MEDS: IPRATROPIUM BROMIDE (0.02%) 0.5MG/2.5ML NEB HHN SCH ×2 (04:00)
[2022-09-04 04:25] VITALS: BP 114/80
[2022-09-04] MEDS: BLOOD SUGAR DIAGNOSTIC STRIP TEST SCH (06:32)
[2022-09-04] MEDS: INSULIN LISPRO 100 UNITS/ML SUBCUT SCH (07:20)
[2022-09-04 08:00] VITALS: BP 129/71
[2022-09-04 08:14] VITALS: BP 129/71
[2022-09-04] MEDS: METOPROLOL TARTRATE 50MG TABLET PO SCH (08:57)
[2022-09-04] MEDS: LOSARTAN POTASSIUM 50 MG TABLET PO SCH (08:57)
[2022-09-04] MEDS: ASPIRIN 81MG EC TABLET PO SCH (08:57)
[2022-09-04] MEDS: BACITRACIN 15GM TUBE TOP SCH (08:58)
[2022-09-04] MEDS: FUROSEMIDE 40MG/4ML VIAL IVP SCH (08:58)
[2022-09-04] MEDS: DOCUSATE SODIUM 100MG CAPSULE PO SCH (08:58)
[2022-09-04] MEDS: FAMOTIDINE 20MG TABLET PO SCH (08:58)
== END 2022-09-04 09:40 | disposition home or self-care (01) | DRG 165 ==
LOC: ER 18:32 → 5EST 22:03 → EDBEDREQSVC 22:08 → EDBEDREQTM 22:08 → EDBEDREQ 22:08 → 5EST 08-25 08:00 → CVICU 08-30 11:47 → 3WST 09-01 18:02
PROVIDERS: ADMIT Internal Medicine; ATTEND Internal Medicine
PROC: 021309W Bypass Coronary Artery, Four or More Arteries from Aorta with Autologous Venous Tissue, Open Approach (ICD-10-PCS; principal; 2022-08-30)
PROC: 02100Z9 Bypass Coronary Artery, One Artery from Left Internal Mammary, Open Approach (ICD-10-PCS; 2022-08-30)
PROC: 06BQ4ZZ Excision of Left Saphenous Vein, Percutaneous Endoscopic Approach (ICD-10-PCS; 2022-08-30)
DX: I21.4 Non-ST elevation (NSTEMI) myocardial infarction (principal); J96.00 Acute respiratory failure, unspecified whether with hypoxia or hypercapnia; I25.10 Atherosclerotic heart disease of native coronary artery without angina pectoris; I69.331 Monoplegia of upper limb following cerebral infarction affecting right dominant side; I50.9 Heart failure, unspecified; E11.9 Type 2 diabetes mellitus without complications; E78.5 Hyperlipidemia, unspecified; D64.9 Anemia, unspecified; Z20.822 Contact with and (suspected) exposure to COVID-19; I11.0 Hypertensive heart disease with heart failure; F17.200 Nicotine dependence, unspecified, uncomplicated; Z79.899 Other long term (current) drug therapy; Z79.4 Long term (current) use of insulin; Z28.310 Unvaccinated for COVID-19; Z79.82 Long term (current) use of aspirin
CPT/HCPCS: 36415; 36600; 71045; 71275; 80048; 80053; 80061; 80320; 81003; 82375; 82550; 82553; 82607; 82746; 82805; 82962; 83036; 83540; 83550; 83735; 83880; 84100; 84439; 84443; 84484; 85025; 85347; 85379; 86850; 86900; 86920; 87426; 93005; 93306; 93880; 93970; 94640; 97110; 97116; 97163; 97167; 97530; 97535; 99291; C1729; C1751; C1758; C9803; J0690; J1100; J1265; J1644; J1650; J1815; J1885; J1940; J2440; J2720; J2930; J3010; J3475; J3480; J3490; J7060; L3908; P9041; Q9957; Q9967; G0480

== ENCOUNTER 2025-01-16 17:51 | Emergency (ER) | payer MEDICAID, OTHER ==
[~2025-01-16] VITALS: Ht 175.3 cm; Wt 89.0 kg
[~2025-01-16 17:51] MED LIST changes: +AMLO-905 PO; +ASPI-1406 PO; +FAMO20TA8 PO; +INSLIS SUBCUT; +LANTUSUD SUBCUT; +LIP40 PO; +MAGN400T26 MT; -MECL-217 PO; +METO-539 PO
[2025-01-16 18:00] VITALS: O2SAT 97
[2025-01-16] MEDS: IBUPROFEN 800MG TABLET PO ONE (18:50)
[2025-01-16] MEDS: TETANUS, DIPHTHERIA, PERTUSSIS VAC/PF 0.5ML (>10YR OLD) IM ONE (18:51)
[2025-01-16] MEDS ORDERED: CEPH500T MT (19:17)
[2025-01-16] MEDS ORDERED: IBUP-2030 MT (19:17)
[2025-01-16 19:35] VITALS: BP 151/86; PULSE 62; RESP 16; TEMP 36.8; O2SAT 97
== END 2025-01-16 20:02 | disposition home or self-care (01) ==
LOC: ER 17:51
DX: S99.922A Unspecified injury of left foot, initial encounter (principal); L03.116 Cellulitis of left lower limb; E11.9 Type 2 diabetes mellitus without complications; E78.00 Pure hypercholesterolemia, unspecified; I10 Essential (primary) hypertension; Z86.73 Personal history of transient ischemic attack (TIA), and cerebral infarction without residual deficits; Z79.899 Other long term (current) drug therapy; Z79.82 Long term (current) use of aspirin; Z98.890 Other specified postprocedural states; X58.XXXA Exposure to other specified factors, initial encounter; Y93.89 Activity, other specified; Y92.89 Other specified places as the place of occurrence of the external cause; Y99.8 Other external cause status
CPT/HCPCS: 73610; 73630; 90715; 90471; 99284; Z7610